=== PATIENT | male | born 1935 | race Caucasian/White ===

== ENCOUNTER 2024-08-08 08:00 | Outpatient (RCR) | payer MEDICARE, MEDICAID, SELFPAY ==
[2024-08-01 08:59] VITALS: BP 185/94; PULSE 80; RESP 18; TEMP 36.6
--- NOTE | 2024-08-01 11:35 | PCM.WC.HP ---
History of Present Illness Date of Service: 08/01/24 Chief Complaint: Full-thickness wound right leg. History of Wound: Full-thickness wound right leg for approximately 1 week Progress of Wound: Patient is a 89-year-old male presenting to wound care center for evaluation of full-thickness wound secondary to venous insufficiency to the right lower extremity. Patient has concern also for proximal dermatitis to the right leg. They have been treating it for approximately 1 week without success. He is here today for further evaluation and treatment. He does have vascular appointment scheduled for this week. They state that the wound to the right lower extremity is improving but still present. Denies trauma. Denies constitutional symptoms. No other pedal complaints at this time. [facility] Medical History Benign prostate hyperplasia Squamous cell carcinoma Sciatica Dysphagia Inguinal hernia Hypertension Type 2 diabetes mellitus Home Medications Medication Instructions Recorded Last Taken Type atenolol 25 mg tablet 25 mg PO DAILY 08/01/24 Unknown History atorvastatin 10 mg tablet 10 mg PO DAILY 08/01/24 Unknown History docusate sodium 100 mg capsule 100 mg PO DAILY 08/01/24 Unknown History doxycycline monohydrate 100 mg 100 mg PO Q12H 08/01/24 Unknown History tablet famotidine 20 mg tablet 20 mg PO DAILY 08/01/24 Unknown History hydrochlorothiazide 25 mg tablet 25 mg PO DAILY 08/01/24 Unknown History metformin 500 mg tablet 500 mg PO BID 08/01/24 Unknown History tamsulosin 0.4 mg capsule 0.8 mg PO DAILY 08/01/24 Unknown History tizanidine 4 mg tablet PO 08/01/24 Unknown History triamcinolone acetonide 0.1 % applic topical 08/01/24 Unknown History topical cream Allergy/AdvReac Type Severity Reaction Status Date / Time No Known Allergies Allergy Verified 08/01/24 09:40 Vital Signs Vital Signs Vital Signs: 08/01/24 08:59 Temperature 97.8 F Temperature Source Temporal Pulse Rate 80 Respiratory Rate 18 Blood Pressure 185/94 H Blood Pressure Mean 124 Blood Pressure Source Monitor Blood Pressure Position Semi-Fowlers Blood Pressure Location Left Arm Oxygen Delivery Method Room Air Physical Exam Narrative Vascular: DP and PT pulses are faintly palpable to right lower extremity. Blanchable erythema appreciated right lower extremity. Skin temperature gradient warm to cool from proximal ankles to distal digit bilateral. Neurological: Light touch intact. Patient response to painful stimuli. Dermatological: Full-thickness wound to the right medial ankle measuring 2.5 x 3.2 x 0.1 cm. Right leg full-thickness ulceration measuring 10.5 x 9.3 x 0.1 cm. Both wounds are granular tissue. Both wounds are caused by venous insufficiency. Mild drainage is appreciated. No malodor or probe to bone. Excisional debridement down to including subcutaneous tissue with a number 7 mm dermal curette to the right medial ankle full-thickness wound done without incident. Predebridement measurement was 2.0 x 3.0 x 0.1 cm. Postdebridement measurements 2.5 x 3.2 x 0.1 cm. Excisional debridement down to including subcutaneous tissue with a number 7 mm dermal curette to the right leg full-thickness wound done without incident.. Right measurement was 10.0 x 9.0 x 0.1 cm. Postdebridement measurement is 10.5 x 9.3 x 0.1 cm. Musculoskeletal: Mild to moderate palpatory tenderness perceived right lower extremity. No pain with calf pressure. Debridement Note Debridement Note Debridement Free Text: Excisional debridement down to including subcutaneous tissue with a number 7 mm dermal curette to the right medial ankle full-thickness wound done without incident. Predebridement measurement was 2.0 x 3.0 x 0.1 cm. Postdebridement measurements 2.5 x 3.2 x 0.1 cm. Excisional debridement down to including subcutaneous tissue with a number 7 mm dermal curette to the right leg full-thickness wound done without incident.. Right measurement was 10.0 x 9.0 x 0.1 cm. Postdebridement measurement is 10.5 x 9.3 x 0.1 cm. Post-Debridement Measurements and Additional Note: Post-Debridement Measurements/Treatment - Nurse 1 - General Ulcer Assessment Start: 08/01/24 08:58 Freq: Status: Active Protocol: GRACE Activity Type Activity Date Activity User E-sign Co-sign Detail Recorded Client Recorded Date Recorded By Document 08/01/24 08:59 NC [id number] 08/01/24 09:24 MT 08/01/24 08:59 - Today's Visit Information Type of service Follow-up Visit (Physician/DICTAPHONE TECHNICIAN ) Arrival Mode Ambulatory Accompanied by wound nurse Patient Identification Verified (Name & Yes ) Safety Precautions Fall Prevention Vital Signs Temperature (97.8 F-99.1 F) 97.8 F Temperature Source Temporal Pulse Rate (60-100) 80 Pulse Location Monitor Respiratory Rate (12-18) 18 Respiratory rate source Monitor Oxygen Delivery Method Room Air Blood Pressure (90/60-120/80) 185/94 H Blood Pressure Mean 124 Source Monitor Position Semi-Fowlers Blood Pressure Location Left Arm History Since Last Visit- (Skip if this is Patient's initial visit) Left Footwear Regular Shoe Right Footwear Regular Shoe Pain Scale: 0-10 Numeric Is Patient Pain Free? Yes WC - Nurse 1 - General Ulcer Measurement Start: 08/01/24 08:58 Freq: Status: Active Protocol: Activity Type Activity Date Activity User E-sign Co-sign Detail Recorded Client Recorded Date Recorded By Document 08/01/24 08:59 NC [id number] 08/01/24 09:24 NC 08/01/24 08:59 Wound Center Nurse 1 #1 Right Superior Roman cluster -Current Size (cm) - Length 6.5 -Current Size (cm) - Width 10 -Current Size (cm) - Depth 0.1 -Total Square Cm 65.0 -Date of Last Picture (Recall this 08/01/24 field) -Photo Taken Yes -Tunneling No -Undermining/Tunneling No -Circular Undermining No -Exudate Amt Medium -Exudate Type Serous -Wound Margin Flat & Intact -Granulation Amt Large (67-100%) -Granulation Quality Pale,[place] -Necrosis Amt Small (1-33%) -Necrotic Tissue Type Adherent Slough -Texture (Maria Elena-wound Skin Appearance) Assessed -Moisture (Maria Elena-wound Skin Appearance) Assessed -Color (Maria Elena-wound Skin Appearance) Assessed -Temperature (Maria Elena-wound Skin No Abnormality Appearance) (Pt Warm) -Tenderness on Palpation (Maria Elena-wound No Skin Appearance) -Ulcer Cleansing Soap and Water -Foul Odor after Cleansing No -Anesthetic Used 5% Lidocaine Gel #3 Right Medial ankle cluster -Current Size (cm) - Length 1.6 -Current Size (cm) - Width 4.5 -Current Size (cm) - Depth 0.1 -Total Square Cm 7.20 -Date of Last Picture (Recall this 08/01/24 field) -Photo Taken Yes -Tunneling No -Undermining/Tunneling No -Circular Undermining No -Exudate Amt Medium -Exudate Type Serous -Wound Margin Flat & Intact -Granulation Amt Large (67-100%) -Granulation Quality Pale,[place] -Necrosis Amt Small (1-33%) -Necrotic Tissue Type Adherent Slough -Texture (Maria Elena-wound Skin Appearance) Assessed -Moisture (Maria Elean-wound Skin Appearance) Assessed -Color (Maria Elena-wound Skin Appearance) Assessed -Temperature (Maria Elena-wound Skin No Abnormality Appearance) (Pt Warm) -Tenderness on Palpation (Maria Elena-wound No Skin Appearance) -Ulcer Cleansing Soap and Water -Anesthetic Used 5% Lidocaine Gel #2 Right roman cluster -Current Size (cm) - Length 3.8 -Current Size (cm) - Width 1.2 -Current Size (cm) - Depth 0.1 -Total Square Cm 4.56 -Date of Last Picture (Recall this 08/01/24 field) -Photo Taken Yes -Tunneling No -Undermining/Tunneling No -Circular Undermining No -Exudate Amt Medium -Exudate Type Serous -Wound Margin Flat & Intact -Granulation Amt Large (67-100%) -Granulation Quality Pale,[place] -Necrosis Amt Small (1-33%) -Necrotic Tissue Type Adherent Slough -Texture (Maria Elena-wound Skin Appearance) Assessed -Moisture (Maria Elena-wound Skin Appearance) Assessed -Color (Maria Elena-wound Skin Appearance) Assessed -Temperature (Maria Elena-wound Skin No Abnormality Appearance) (Pt Warm) -Tenderness on Palpation (Maria Elena-wound No Skin Appearance) -Ulcer Cleansing Soap and Water -Anesthetic Used 5% Lidocaine Gel Right Calf (cm) 34 Right Ankle (cm) 22 WC - Nurse 2 - General Ulcer CM Notes Start: 08/01/24 08:58 Freq: Status: Active Protocol: Activity Type Activity Date Activity User E-sign Co-sign Detail Recorded Client Recorded Date Recorded By Document 08/01/24 09:40 JACY [id number] 08/01/24 09:46 JACY 08/01/24 09:40 Wound Center Nurse 2 #3 Right Medial ankle cluster -Time 09:41 -Correct Patient Yes -Correct Side, Site, Position Yes -Correct Procedure Yes -Procedure Performed Yes -Type of Procedure Debridement -Clinical Debridement Subcutaneous -Tissue Removed Subcutaneous -Post Debridement (cm) - Length 2.5 -Post Debridement (cm) - Width 3.2 -Post Debridement (cm) - Depth 0.1 -Total Square (Post) (cm) 8.00 -Area of Debridement (cm) - Length 2.5 -Area of Debridement (cm) - Width 3.2 -Total Square (Area) (cm) 8.00 -Tunneling No -Undermining/Tunneling No -Circular Undermining No -Wound/Ulcer Outcome Not Healed -Ulcer Cleansing Rinsed/ Irrigated with Saline -Foul Odor after Cleansing No -Bioengineered Tissue No -Bleeding Controlled with Pressure -Treatment Response Procedure Tolerated Well -Offloading No -Debridement - Subq, 1st 20sq cm No #2 Right roman cluster -Time 09:44 -Correct Patient Yes -Correct Side, Site, Position Yes -Correct Procedure Yes -Procedure Performed Yes -Type of Procedure Debridement -Clinical Debridement Subcutaneous -Tissue Removed Subcutaneous -Post Debridement (cm) - Length 10.5 -Post Debridement (cm) - Width 9.3 -Post Debridement (cm) - Depth 0.1 -Total Square (Post) (cm) 97.65 -Area of Debridement (cm) - Length 10.5 -Area of Debridement (cm) - Width 9.3 -Total Square (Area) (cm) 97.65 -Tunneling No -Undermining/Tunneling No -Circular Undermining No -Wound/Ulcer Outcome Not Healed -Ulcer Cleansing Rinsed/ Irrigated with Saline -Foul Odor after Cleansing No -Bioengineered Tissue No -Bleeding Controlled with Pressure -Treatment Response Procedure Tolerated Well -Offloading No -Debridement - Subq, 1st 20sq cm Yes -Debridement, SubQ, ea addt'l 20sq cm 5 or part thereof Pain Scale: 0-10 Numeric Is Patient Pain Free? Yes - Nurse 3 - General Ulcer D/C NN Start: 08/01/24 08:58 Freq: Status: Active Protocol: Activity Type Activity Date Activity User E-sign Co-sign Detail Recorded Client Recorded Date Recorded By Document 08/01/24 09:53 [id number] 08/01/24 09:57 GM 08/01/24 09:53 Wound Care Center Nurse 3 #3 Right Medial ankle cluster -Ulcer Cleansing Not Cleansed -Foul Odor after Cleansing No -Primary Dressing Applied Aquacel AG 4x4 -Primary Dressing Covered/Secured with Dry Gauze,Dry Gauze & Roll Gauze,Secured with Tape -Aquacel AG 4x4 1 #2 Right roman cluster -Ulcer Cleansing Not Cleansed -Foul Odor after Cleansing No -Primary Dressing Covered/Secured with Dry Gauze, Secured with Tape -Wound Comment(s) used remainder of aquacel RLE -Lotion applied to leg before No compression wrap -Tubular Bandage Single Layer -Size of Tubigrip Used Size D -Size D ($) 1 LLE -Lotion applied to leg before No compression wrap -Tubular Bandage Single Layer -Size of Tubigrip Used Size D -Size D ($) 1 Pain Scale: 0-10 Numeric Is Patient Pain Free? Yes WC - Visit Discharge Discharge Condition Stable Ambulatory Status Ambulatory, Walker Transportation Private Auto Assessment/Plan Assessment/Plan (1) Non-pressure chronic ulcer of other part of right lower leg with fat layer exposed: CODE(S): L97.812 - Non-pressure chronic ulcer of other part of right lower leg with fat layer exposed PLAN: Patient was examined and evaluated. All findings were discussed with the patient. All questions were answered to the patient's satisfaction. Excisional debridement down to including subcutaneous tissue with a number 7 mm dermal curette to the right medial ankle full-thickness wound done without incident. Predebridement measurement was 2.0 x 3.0 x 0.1 cm. Postdebridement measurements 2.5 x 3.2 x 0.1 cm. Excisional debridement down to including subcutaneous tissue with a number 7 mm dermal curette to the right leg full-thickness wound done without incident.. Right measurement was 10.0 x 9.0 x 0.1 cm. Postdebridement measurement is 10.5 x 9.3 x 0.1 cm. The right lower extremities are clean and patted dry. Culture was taken. Patient's right lower extremity ulcerations were dressed with Betadine soaked gauze dry sterile dressing ice compression wrap was donned to the right and left lower extremity. Authorization for vascular studies will be sent to the patient's insurance for authorization. Orders for dressing changes were giving to nursing staff at his facility. Will begin authorization of the patient's insurance for skin graft substitute to the right lower extremity. Follow-up at the wound care center with Dr. Brice in 1 week. (2) Non-pressure chronic ulcer of right ankle with fat layer exposed: CODE(S): L97.312 - Non-pressure chronic ulcer of right ankle with fat layer exposed
--- NOTE | 2024-08-02 09:38 | WC ---
PHOTO 08/01/24 RIGHT SUP CASH
--- NOTE | 2024-08-02 09:42 | WC ---
PHOTO 08/01/24 RIGHT INF CASH
--- NOTE | 2024-08-02 10:00 | WC ---
PHOTO 08/01/24 ANKLE CLUSTER
[2024-08-08 08:11] VITALS: BP 128/69; PULSE 55; RESP 15; TEMP 36.4
--- NOTE | 2024-08-08 08:57 | PN.PCM_ITS ---
History of Present Illness Date of Service: 08/08/24 Chief Complaint: Full-thickness wound right leg. History of Wound: Full-thickness wound right leg for approximately 1 week Progress of Wound: Improving full-thickness wound to the right leg Subjective Subjective Patient is 89-year-old male presenting to clinic today follow-up evaluation of full-thickness wound to right leg. They have been doing dressing changes at the [facility]. The wound is improving. He does have an upcoming noninvasive vascular study in the first week of August for baseline studies. He denies any drainage or pain to the right lower extremity. He denies trauma. Denies constitutional symptoms. No other pedal complaints at this time. Objective Data Objective Data Vital Signs: Vital Signs Temp Pulse Resp BP O2 Del Method 97.6 F L 55 L 15 128/69 H Room Air 08/08/24 08:11 08/08/24 08:11 08/08/24 08:11 08/08/24 08:11 08/01/24 08:59 Oxygen Delivery Method Room Air Lab / Micro Data Micro: Microbiology 08/01/24 09:37 Ulcer, Decubitus - Leg, Right Gram Stain - Final 08/01/24 09:37 Ulcer, Decubitus - Leg, Right Wound Culture - Final Klebsiella pneumoniae sp pneum Rothia kristinae Corynebacterium striatum 08/01/24 09:37 Ulcer, Decubitus - Leg, Right Anaerobic Culture - Final No anaerobic bacteria isolated. Physical Exam Narrative Vascular: DP and PT pulses are faintly palpable to right lower extremity. Blanchable erythema appreciated right lower extremity, improved. Skin temperature gradient warm to cool from proximal ankles to distal digit bilateral. Neurological: Light touch intact. Patient response to painful stimuli. Dermatological: Full-thickness wound to the right medial ankle measuring 1.2 x 1.5 x 0.1 cm. Right leg full-thickness ulceration measuring 7.9 x 7.5 x 0.1 cm both wounds are granular tissue. No drainage at this time. No malodor. No probe to bone. Excisional debridement down to including subcutaneous tissue with a number 7 mm dermal curette to the right medial ankle full-thickness wound done without incident. Predebridement measurement was 1.0 x 1.2 x 0.1 cm. Postdebridement measurements 1.2 x 1.5 x 0.1 cm. Excisional debridement down to including subcutaneous tissue with a number 7 mm dermal curette to the right leg full-thickness wound done without incident. Right measurement was 7.7 x 7.4 x 0.1 cm. Postdebridement measurement is 7.9 x 7.5 x 0.1 cm. EpiFix 4.0 x 4.5 cm mesh was applied to the right full-thickness ulceration with 100% use. First application. The graft site was free and clear of any infection. The wound/skin graft substitute was dressed with nonadherent bandage secured in place with Steri-Strips followed by bolster dressing as well as a single layer Tubigrip. Musculoskeletal: Mild to moderate palpatory tenderness perceived right lower extremity. No pain with calf pressure. Debridement Note Debridement Note Debridement Free Text: Excisional debridement down to including subcutaneous tissue with a number 7 mm dermal curette to the right medial ankle full- thickness wound done without incident. Predebridement measurement was 1.0 x 1.2 x 0.1 cm. Postdebridement measurements 1.2 x 1.5 x 0.1 cm. Excisional debridement down to including subcutaneous tissue with a number 7 mm dermal curette to the right leg full-thickness wound done without incident. Right measurement was 7.7 x 7.4 x 0.1 cm. Postdebridement measurement is 7.9 x 7.5 x 0.1 cm. EpiFix 4.0 x 4.5 cm mesh was applied to the right full-thickness ulceration with 100% use. First application. The graft site was free and clear of any infection. The wound/skin graft substitute was dressed with nonadherent bandage secured in place with Steri-Strips followed by bolster dressing as well as a single layer Tubigrip. Post-Debridement Measurements and Additional Note: Post-Debridement Measurements/Treatment - Nurse 1 - General Ulcer Assessment Start: 08/01/24 08:58 Freq: Status: Active Protocol: GRACE Activity Type Activity Date Activity User E-sign Co-sign Detail Recorded Client Recorded Date Recorded By Document 08/01/24 08:59 MT [id number] 08/01/24 09:24 MT Document 08/08/24 08:11 ML [id number] 08/08/24 08:19 ML 08/01/24 08/08/24 08:59 08:11 - Today's Visit Information Type of service Follow-up Visit Follow-up Visit (Physician/CLIENT SERVICES REPRESENTATIVE (Physician/CLIENT SERVICES REPRESENTATIVE ) ) Arrival Mode Ambulatory Ambulatory, Walker Accompanied by wound nurse Patient Identification Verified (Name & Yes Yes ) Patient Requires Transmission-Based No Precautions Safety Precautions Fall Prevention Vital Signs Temperature (97.8 F-99.1 F) 97.8 F 97.6 F L Temperature Source Temporal Temporal Pulse Rate (60-100) 80 55 L Pulse Location Monitor Monitor Respiratory Rate (12-18) 18 15 Respiratory rate source Monitor Observation Oxygen Delivery Method Room Air Blood Pressure (90/60-120/80) 185/94 H 128/69 H Blood Pressure Mean (mm Hg) 124 88 Source Monitor Monitor Position Semi-Fowlers Supine Blood Pressure Location Left Arm Left Arm History Since Last Visit- (Skip if this is Patient's initial visit) Have you changed medications since your No last visit? Any new allergies or adverse reactions No Had a fall/change in ADL's that may No increase risk of falls Signs or symptoms of abuse and/or No neglect since last visit Has dressing in place as prescribed Yes Has compression in place as prescribed Yes Has offloadiing in place as prescribed N/A Experienced any changes in pain level or No management Left Footwear Regular Shoe Right Footwear Regular Shoe Pain Scale: 0-10 Numeric Is Patient Pain Free? Yes Yes - Nurse 1 - General Ulcer Measurement Start: 08/01/24 08:58 Freq: Status: Active Protocol: Activity Type Activity Date Activity User E-sign Co-sign Detail Recorded Client Recorded Date Recorded By Document 08/01/24 08:59 ND [id number] 08/01/24 09:24 ND Document 08/08/24 08:11 ML [id number] 08/08/24 08:19 ML 08/01/24 08/08/24 08:59 08:11 Wound Center Nurse 1 #1 Right Superior Roman cluster -Current Size (cm) - Length 6.5 -Current Size (cm) - Width 10 -Current Size (cm) - Depth 0.1 -Total Square Cm 65.0 -Date of Last Picture (Recall this 08/01/24 field) -Photo Taken Yes -Tunneling No -Undermining/Tunneling No -Circular Undermining No -Exudate Amt Medium -Exudate Type Serous -Wound Margin Flat & Intact -Granulation Amt Large (67-100%) -Granulation Quality Pale,Anita -Necrosis Amt Small (1-33%) -Necrotic Tissue Type Adherent Slough -Texture (Maria Elena-wound Skin Appearance) Assessed -Moisture (Maria Elena-wound Skin Appearance) Assessed -Color (Maria Elena-wound Skin Appearance) Assessed -Temperature (Maria Elena-wound Skin No Abnormality Appearance) (Pt Warm) -Tenderness on Palpation (Maria Elena-wound No Skin Appearance) -Ulcer Cleansing Soap and Water -Foul Odor after Cleansing No -Anesthetic Used 5% Lidocaine Gel #3 Right Medial ankle cluster -Current Size (cm) - Length 1.6 5.5 -Current Size (cm) - Width 4.5 7.2 -Current Size (cm) - Depth 0.1 0.1 -Total Square Cm 7.20 39.60 -Date of Last Picture (Recall this 08/01/24 field) -Photo Taken Yes -Tunneling No -Undermining/Tunneling No -Circular Undermining No -Exudate Amt Medium Medium -Exudate Type Serous Serosanguineous -Wound Margin Flat & Intact -Granulation Amt Large (67-100%) Small (1-33%) -Granulation Quality Pale,Anita -Slough/Fibrin Yes -Necrosis Amt Small (1-33%) Medium (34-66%) -Necrotic Tissue Type Adherent Slough Adherent Slough -Texture (Maria Elena-wound Skin Appearance) Assessed Assessed -Moisture (Maria Elena-wound Skin Appearance) Assessed Assessed -Color (Maria Elena-wound Skin Appearance) Assessed Assessed -Temperature (Maria Elena-wound Skin No Abnormality No Abnormality Appearance) (Pt Warm) (Pt Warm) -Tenderness on Palpation (Maria Elena-wound No No Skin Appearance) -Ulcer Cleansing Soap and Water Soap and Water -Foul Odor after Cleansing No -Anesthetic Used 5% Lidocaine 5% Lidocaine Gel Gel #2 Right roman cluster -Current Size (cm) - Length 3.8 1 -Current Size (cm) - Width 1.2 0.5 -Current Size (cm) - Depth 0.1 0.1 -Total Square Cm 4.56 0.5 -Date of Last Picture (Recall this 08/01/24 field) -Photo Taken Yes -Tunneling No -Undermining/Tunneling No -Circular Undermining No -Exudate Amt Medium Small -Exudate Type Serous Serosanguineous -Wound Margin Flat & Intact -Granulation Amt Large (67-100%) Small (1-33%) -Granulation Quality Pale,Anita -Slough/Fibrin Yes -Necrosis Amt Small (1-33%) Small (1-33%) -Necrotic Tissue Type Adherent Slough Adherent Slough -Texture (Maria Elena-wound Skin Appearance) Assessed Assessed -Moisture (Maria Elena-wound Skin Appearance) Assessed Assessed -Color (Maria Elena-wound Skin Appearance) Assessed Assessed -Temperature (Maria Elena-wound Skin No Abnormality No Abnormality Appearance) (Pt Warm) (Pt Warm) -Tenderness on Palpation (Maria Elena-wound No No Skin Appearance) -Ulcer Cleansing Soap and Water Soap and Water -Foul Odor after Cleansing No -Anesthetic Used 5% Lidocaine 5% Lidocaine Gel Gel Right Calf (cm) 34 Right Ankle (cm) 22 WC - Nurse 2 - General Ulcer CM Notes Start: 08/01/24 08:58 Freq: Status: Active Protocol: Activity Type Activity Date Activity User E-sign Co-sign Detail Recorded Client Recorded Date Recorded By Document 08/01/24 09:40 [id number] 08/01/24 09:46 Document 08/08/24 08:34 DS [id number] 08/08/24 08:37 DS 08/01/24 08/08/24 09:40 08:34 Wound Center Nurse 2 #3 Right Medial ankle cluster -Time 09:41 08:34 -Correct Patient Yes Yes -Correct Side, Site, Position Yes Yes -Correct Procedure Yes Yes -Procedure Performed Yes Yes -Type of Procedure Debridement Debridement -Clinical Debridement Subcutaneous Subcutaneous -Tissue Removed Subcutaneous Subcutaneous -Post Debridement (cm) - Length 2.5 1.2 -Post Debridement (cm) - Width 3.2 1.5 -Post Debridement (cm) - Depth 0.1 0.1 -Total Square (Post) (cm) 8.00 1.80 -Area of Debridement (cm) - Length 2.5 1.2 -Area of Debridement (cm) - Width 3.2 1.5 -Total Square (Area) (cm) 8.00 1.80 -Tunneling No No -Undermining/Tunneling No No -Circular Undermining No No -Wound/Ulcer Outcome Not Healed Not Healed -Ulcer Cleansing Rinsed/ Rinsed/ Irrigated with Irrigated with Saline Saline -Foul Odor after Cleansing No No -Bioengineered Tissue No No -Bleeding Controlled with Pressure Pressure -Treatment Response Procedure Procedure Tolerated Well Tolerated Well -Offloading No -Debridement - Subq, 1st 20sq cm No No #2 Right roman cluster -Time 09:44 08:35 -Correct Patient Yes Yes -Correct Side, Site, Position Yes Yes -Correct Procedure Yes Yes -Procedure Performed Yes Yes -Type of Procedure Debridement Debridement -Clinical Debridement Subcutaneous Subcutaneous -Tissue Removed Subcutaneous Subcutaneous -Post Debridement (cm) - Length 10.5 7.9 -Post Debridement (cm) - Width 9.3 7.5 -Post Debridement (cm) - Depth 0.1 0.1 -Total Square (Post) (cm) 97.65 59.25 -Area of Debridement (cm) - Length 10.5 7.9 -Area of Debridement (cm) - Width 9.3 7.5 -Total Square (Area) (cm) 97.65 59.25 -Tunneling No No -Undermining/Tunneling No No -Circular Undermining No No -Wound/Ulcer Outcome Not Healed Not Healed -Ulcer Cleansing Rinsed/ Rinsed/ Irrigated with Irrigated with Saline Saline -Foul Odor after Cleansing No No -Bioengineered Tissue No -Type of Bioengineered Tissue Epifix Mesh -Expiration Date 12/15/28 -Product Lot Number [id number] -Percent Used 100 -Lot number of Saline Used [id number] -Bleeding Controlled with Pressure Pressure -Treatment Response Procedure Procedure Tolerated Well Tolerated Well -Offloading No -Debridement - Subq, 1st 20sq cm Yes No -Debridement, SubQ, ea addt'l 20sq cm 5 or part thereof -Apply Skin Sub - 1st 25 sq cm - Legs 1 -Apply Skin Sub - each addt'l 25 sq cm 2 - Legs -Epifix Mesh Application 1-4 (per sq 11 cm) Pain Scale: 0-10 Numeric Is Patient Pain Free? Yes Yes - Nurse 3 - General Ulcer D/C NN Start: 08/01/24 08:58 Freq: Status: Active Protocol: Activity Type Activity Date Activity User E-sign Co-sign Detail Recorded Client Recorded Date Recorded By Document 08/01/24 09:53 [id number] 08/01/24 09:57 Document 08/08/24 08:42 [id number] 08/08/24 08:43 08/01/24 08/08/24 09:53 08:42 Wound Care Center Nurse 3 #3 Right Medial ankle cluster -Ulcer Cleansing Not Cleansed Not Cleansed -Foul Odor after Cleansing No No -Primary Dressing Applied Aquacel AG 4x4 -Primary Dressing Covered/Secured with Dry Gauze,Dry Dry Gauze Gauze & Roll Gauze,Secured with Tape -Aquacel AG 4x4 1 #2 Right roman cluster -Ulcer Cleansing Not Cleansed Not Cleansed -Foul Odor after Cleansing No No -Primary Dressing Covered/Secured with Dry Gauze, Dry Gauze,Dry Secured with Gauze & Roll Tape Gauze,Secured with Tape -Wound Comment(s) used remainder of aquacel RLE -Lotion applied to leg before No No compression wrap -Tubular Bandage Single Layer Single Layer -Size of Tubigrip Used Size D Size D -Size D ($) 1 1 LLE -Lotion applied to leg before No No compression wrap -Tubular Bandage Single Layer Single Layer -Size of Tubigrip Used Size D Size D -Size D ($) 1 1 Pain Scale: 0-10 Numeric Is Patient Pain Free? Yes Yes WC - Visit Discharge Discharge Condition Stable Stable Ambulatory Status Ambulatory, Ambulatory, Walker Walker Transportation Private Auto Private Auto Assessment/Plan Assessment/Plan (1) Non-pressure chronic ulcer of other part of right lower leg with fat layer exposed: CODE(S): L97.812 - Non-pressure chronic ulcer of other part of right lower leg with fat layer exposed PLAN: Patient was examined and evaluated. All findings were discussed with the patient. All questions were answered to the patient's satisfaction. Excisional debridement down to including subcutaneous tissue with a number 7 mm dermal curette to the right medial ankle full-thickness wound done without incident. Predebridement measurement was 1.0 x 1.2 x 0.1 cm. Postdebridement measurements 1.2 x 1.5 x 0.1 cm. Excisional debridement down to including subcutaneous tissue with a number 7 mm dermal curette to the right leg full-thickness wound done without incident. Right measurement was 7.7 x 7.4 x 0.1 cm. Postdebridement measurement is 7.9 x 7.5 x 0.1 cm. EpiFix 4.0 x 4.5 cm mesh was applied to the right full-thickness ulceration with 100% use. First application. The graft site was free and clear of any infection. The wound/skin graft substitute was dressed with nonadherent bandage secured in place with Steri-Strips followed by bolster dressing as well as a single layer Tubigrip. Betadine paint was applied to wounds do not covered with amniotic skin graft substitute. Orders for daily dressing changes except the graft were given to residential. Patient will follow-up with noninvasive vascular studies in the next upcoming week. After physical examination there is not really a concern for infection however the patient is growing some bacteria to the medial right leg ulceration. Will be placing the patient on levofloxacin 500 mg daily for 2 weeks Follow-up at the wound care center with Dr. Brice in 1 week. (2) Non-pressure chronic ulcer of right ankle with fat layer exposed: CODE(S): L97.312 - Non-pressure chronic ulcer of right ankle with fat layer exposed
--- NOTE | 2024-08-09 09:47 | WC ---
PHOTO 08/08/24 RIGHT LEG
--- NOTE | 2024-08-09 09:54 | WC ---
PHOTO 08/08/24 RIGHT LEG
== END 2024-08-13 23:59 | disposition home or self-care (01) ==
LOC: WC 08:00
PROVIDERS: PCP Internal Medicine Infectious Disease; Referring Provider Internal Medicine Infectious Disease; Visit Provider Podiatrist Foot & Ankle Surgery
DX: I87.2 Venous insufficiency (chronic) (peripheral) (principal); L97.812 Non-pressure chronic ulcer of other part of right lower leg with fat layer exposed; L97.312 Non-pressure chronic ulcer of right ankle with fat layer exposed; E11.9 Type 2 diabetes mellitus without complications; I10 Essential (primary) hypertension; Z79.84 Long term (current) use of oral hypoglycemic drugs; Z79.899 Other long term (current) drug therapy
CPT/HCPCS: 11042; 11045; 15271; 15272; 87070; 87075; 87077; 87186; 87205; 99214; Q4186; G0463

== ENCOUNTER 2024-08-29 08:15 | Outpatient (RCR) | payer MEDICARE, MEDICAID, SELFPAY ==
--- NOTE | 2024-08-22 07:50 | ART_ITS ---
Reason For Study Reason For Study: RLE Wound Procedure A bilateral lower extremity continuous wave Doppler with analog waveform analysis,segmental pressures,and ankle brachial indexes without exercise. Left Segmental Pressures Left brachial= 164mmHg. Left posterior tibial artery = >254mmHg. Left dorsalis pedis artery = >254mmHg. Left digit = 162 mmHg. The left posterior tibial artery waveforms are biphasic. The left dorsalis pedis waveforms are biphasic. Right Segmental Pressures Right brachial= 155mmHg. Right posterior tibial artery = >254mmHg. Right dorsalis pedis artery = >254mmHg. Right digit = 128 mmHg. The right posterior tibial artery waveforms are biphasic. The right dorsalis pedis waveforms are biphasic. Indices The right ankle brachial index by the posterior tibial artery is N/C. The right ankle brachial index by the dorsalis pedis is N/C. The right digital-brachial index is 0.78. The left ankle brachial index by the posterior tibial artery is N/C. The left ankle brachial index by the dorsalis pedis is N/C. The left digital-brachial index is 0.99. VL/Lower Ext Art Exam w/o Exercis Interpretation Summary Right ERASMO not able to be obtained due to non-compressible vessels. TBI normal. Doppler/PVR waveforms mildly diminished distal SFA/popliteal. Left ERASMO not able to be obtained due to non-compressible vessels. TBI normal. D oppler/PVR waveforms mildly diminished distal SFA/popliteal. Ordering Physician: Nghia Brice Referring Physician: Aristeo Kerr Performed By: Morales Mcpherson RVT
--- NOTE | 2024-08-22 07:50 | VDLE_ITS ---
Reason For Study Reason For Study: RLE Wound RIGHT LEFT CFV is compressible, spontaneous, phasic, competent CFV is compressible, spontaneous, phasic, competent, and demonstrates normal augmentation. and demonstrates normal augmentation. FV is compressible, spontaneous, phasic, competent FV is compressible, spontaneous, phasic, competent and demonstrates normal augmentation. and demonstrates normal augmentation. POP V is compressible, spontaneous, phasic, competent POP V is compressible, spontaneous, phasic, competent and demonstrates normal augmentation. and demonstrates normal augmentation. T/P Trunk is compressible. T/P Trunk is compressible. PTV is compressible. PTV is compressible. RT PerV is compressible. LT PerV is compressible. SFJ is competent and measures 0.49 cm. SFJ is competent and measures 0.58 cm. GSV proximal thigh measures 0.33 x 0.32 cm. GSV proximal thigh measures 0.32 x 0.30 cm. GSV at knee measures 0.33 x 0.35 cm. GSV at knee measures 0.29 x 0.31 cm. GSV above knee is competent. GSV INCOMPETENT throughout for greater than 0.5 GSV below knee is INCOMPETENT for greater than 0.5 seconds. seconds. ASV proximal calf is INCOMPETENT for greater than 0.5 SSV mid calf is competent and measures 0.23 x 0.24 seconds and measures 0.40 x 0.42 cm. cm. Unable to visualize Lt SSV. Procedure Exam performed in department. This is a venous duplex using B-mode, color flow and spectral Doppler. The exam was diagnostic. Patient was scanned in reverse Trendelenburg position during reflux assessment. VL/Venous Duplex US - Toney Extrem Interpretation Summary Deep veins of the bilateral lower extremities are patent and compressible segme ntally. There is no evidence of bilateral lower extremity deep vein thrombosis. The bilateral great saphenous veins appea r patent and compressible segmentally. Positive for reflux in the right great saphenous vein below the knee. Positive for reflux in the left great saphenous julisa throughout, accessory saphe nous vein in the calf. Ordering Physician: Nghia Brice Referring Physician: Aristeo Kerr Performed By: Morales Mcpherson RVT
[2024-08-22 10:57] VITALS: BP 153/72; PULSE 83; RESP 16; TEMP 36.8
--- NOTE | 2024-08-22 13:08 | PCM.WC.HP ---
History of Present Illness Date of Service: 08/22/24 Chief Complaint: Full-thickness wound right leg. History of Wound: Full-thickness wound right leg for approximately 1 week. This was a courtesy visit for Dr. Brice patient was receiving epi #2 epi fix to the right leg cluster. Upon exam and and debridement I debrided the right medial ankle scabs came off easily with new skin underneath. [facility] Medical History Benign prostate hyperplasia Squamous cell carcinoma Sciatica Dysphagia Inguinal hernia Hypertension Type 2 diabetes mellitus Home Medications ?Medication ?Instructions ?Recorded ?Last Taken ?Type atenolol 25 mg tablet 25 mg PO DAILY 08/01/24 Unknown History atorvastatin 10 mg tablet 10 mg PO DAILY 08/01/24 Unknown History docusate sodium 100 mg capsule 100 mg PO DAILY 08/01/24 Unknown History doxycycline monohydrate 100 mg 100 mg PO Q12H 08/01/24 Unknown History tablet famotidine 20 mg tablet 20 mg PO DAILY 08/01/24 Unknown History hydrochlorothiazide 25 mg tablet 25 mg PO DAILY 08/01/24 Unknown History metformin 500 mg tablet 500 mg PO BID 08/01/24 Unknown History tamsulosin 0.4 mg capsule 0.8 mg PO DAILY 08/01/24 Unknown History tizanidine 4 mg tablet PO 08/01/24 Unknown History triamcinolone acetonide 0.1 % applic topical 08/01/24 Unknown History topical cream Allergy/AdvReac Type Severity Reaction Status Date / Time No Known Allergies Allergy Verified 08/01/24 09:40 ROS Constitutional Constitutional: Reports systems reviewed and no addt'l complaints, except as documented Eyes Eyes: Reports systems reviewed and no addt'l complaints, except as documented ENT HEENT: Reports systems reviewed and no addt'l complaints, except as documented Cardiovascular Cardiovascular: Reports systems reviewed and no addt'l complaints, except as documented Respiratory/Chest Respiratory/Chest: Reports systems reviewed and no addt'l complaints, except as documented Gastrointestinal Gastrointestinal: Reports systems reviewed and no addt'l complaints, except as documented Genitourinary Genitourinary: Reports systems reviewed and no addt'l complaints, except as documented Musculoskeletal Musculoskeletal: Reports systems reviewed and no addt'l complaints, except as documented Integumentary Integumentary: Reports systems reviewed and no addt'l complaints, except as documented Neurologic Neurologic: Reports systems reviewed and no addt'l complaints, except as documented Psychiatric Psychiatric: Reports systems reviewed and no addt'l complaints, except as documented Endocrine Endocrinology: Reports systems reviewed and no addt'l complaints, except as documented Hematologic/Lymphatic Hematologic/Lymphatic: Reports systems reviewed and no addt'l complaints, except as documented Allergic/Immunologic Allergic/Immunologic: Reports systems reviewed and no addt'l complaints, except as documented Vital Signs Vital Signs Vital Signs: 08/22/24 10:57 Temperature 98.2 F Temperature Source Temporal Pulse Rate 83 Respiratory Rate 16 Blood Pressure 153/72 H Blood Pressure Mean 99 Blood Pressure Source Monitor Blood Pressure Position Sitting Blood Pressure Location Right Arm Oxygen Delivery Method Room Air Physical Exam Narrative Vascular: DP and PT pulses are faintly palpable to right lower extremity. Blanchable erythema appreciated right lower extremity. Skin temperature gradient warm to cool from proximal ankles to distal digit bilateral. Neurological: Light touch intact. Patient response to painful stimuli. Dermatological: Full-thickness wound to the right medial ankle measuring 2.5 x 3.2 x 0.1 cm. Right leg full-thickness ulceration measuring 10.5 x 9.3 x 0.1 cm. Both wounds are granular tissue. Both wounds are caused by venous insufficiency. Mild drainage is appreciated. No malodor or probe to bone. Excisional debridement down to including subcutaneous tissue with a number 7 mm dermal curette to the right medial ankle full-thickness wound done without incident. Predebridement measurement was 2.0 x 3.0 x 0.1 cm. Postdebridement measurements 2.5 x 3.2 x 0.1 cm. Excisional debridement down to including subcutaneous tissue with a number 7 mm dermal curette to the right leg full-thickness wound done without incident.. Right measurement was 10.0 x 9.0 x 0.1 cm. Postdebridement measurement is 10.5 x 9.3 x 0.1 cm. Musculoskeletal: Mild to moderate palpatory tenderness perceived right lower extremity. No pain with calf pressure. Debridement Note Debridement Note Wound debrided: Right leg cluster Type of Debridement: Excisional debridement Anesthesia Used: 5% Lidocaine Gel Depth: Down to and including healthy tissue and in the subcutaneous layer Percentage of wound debrided: 100 Instrument Used: 5mm curette Tissue Removed: Devitalized tissue and fibrin Severity: Limited To Skin Breakdown Amount of bleeding with debridement: Mild Bleeding Controlled with: Compression and gauze Patient tolerated procedure: Patient tolerated procedure well Post-Debridement Measurements and Additional Note: Post-Debridement Measurements/Treatment - Nurse 1 - General Ulcer Assessment Start: 08/22/24 10:57 Freq: Status: Active Protocol: GRACE Activity Type Activity Date Activity User E-sign Co-sign Detail Recorded Client Recorded Date Recorded By Document 08/22/24 10:57 [id number] 08/22/24 11:00 08/22/24 10:57 - Today's Visit Information Type of service Follow-up Visit (Physician/[employer] ) Arrival Mode Ambulatory, Walker Transfer Assistance None Patient Identification Verified (Name & Yes ) Patient Requires Transmission-Based No Precautions Vital Signs Temperature (97.8 F-99.1 F) 98.2 F Temperature Source Temporal Pulse Rate (60-100) 83 Pulse Location Monitor Respiratory Rate (12-18) 16 Respiratory rate source Observation Oxygen Delivery Method Room Air Blood Pressure (90/60-120/80) 153/72 H Blood Pressure Mean 99 Source Monitor Position Sitting Blood Pressure Location Right Arm History Since Last Visit- (Skip if this is Patient's initial visit) Have you changed medications since your No last visit? Any new allergies or adverse reactions No Had a fall/change in ADL's that may No increase risk of falls Signs or symptoms of abuse and/or No neglect since last visit Have you been in the hospital since your No last visit? Has dressing in place as prescribed Yes Has compression in place as prescribed Yes Has offloadiing in place as prescribed N/A Experienced any changes in pain level or Yes management Left Footwear Regular Shoe Right Footwear Regular Shoe Pain Scale: 0-10 Numeric Is Patient Pain Free? Yes [facility] Nurse 1 - General Ulcer Measurement Start: 08/22/24 10:57 Freq: Status: Active Protocol: Activity Type Activity Date Activity User E-sign Co-sign Detail Recorded Client Recorded Date Recorded By Document 08/22/24 10:57 [id number] 08/22/24 11:00 08/22/24 10:57 Wound Center Nurse 1 #3 Right Medial ankle cluster -Combined with other wound No -Current Size (cm) - Length 0.8 -Current Size (cm) - Width 2.0 -Current Size (cm) - Depth 0.1 -Total Square Cm 1.60 -Photo Taken No -Epithelialization None Present -Tunneling No -Undermining/Tunneling No -Circular Undermining No -Exudate Type Serosanguineous -Wound Margin Distinct, Outline Attached -Granulation Amt None Present (0 %) -Slough/Fibrin Yes -Necrosis Amt Small (1-33%) -Texture (Maria Elena-wound Skin Appearance) Assessed -Moisture (Maria Elena-wound Skin Appearance) Assessed -Color (Maria Elena-wound Skin Appearance) Assessed -Temperature (Maria Elena-wound Skin No Abnormality Appearance) (Pt Warm) -Tenderness on Palpation (Maria Elena-wound No Skin Appearance) -Ulcer Cleansing Soap and Water -Foul Odor after Cleansing No -Anesthetic Used 5% Lidocaine Gel #2 Right roman cluster -Current Size (cm) - Length 10.6 -Current Size (cm) - Width 8.0 -Current Size (cm) - Depth 0.1 -Total Square Cm 84.80 -Photo Taken No -Epithelialization None Present -Tunneling No -Undermining/Tunneling No -Circular Undermining No -Exudate Amt Small -Exudate Type Yellow/Green -Wound Margin Distinct, Outline Attached -Granulation Amt Medium (34-66%) -Granulation Quality [place] -Slough/Fibrin No -Necrosis Amt None Present (0 %) -Texture (Maria Elena-wound Skin Appearance) Assessed -Moisture (Maria Elena-wound Skin Appearance) Assessed -Color (Maria Elena-wound Skin Appearance) Assessed -Temperature (Maria Elena-wound Skin No Abnormality Appearance) (Pt Warm) -Tenderness on Palpation (Maria Elena-wound No Skin Appearance) -Ulcer Cleansing Soap and Water -Foul Odor after Cleansing No -Anesthetic Used 5% Lidocaine Gel Lower Limb Edema Present No Right Calf (cm) 34.2 Right Ankle (cm) 20.0 WC - Nurse 2 - General Ulcer CM Notes Start: 08/22/24 10:57 Freq: Status: Active Protocol: Activity Type Activity Date Activity User E-sign Co-sign Detail Recorded Client Recorded Date Recorded By Document 08/22/24 11:09 [facility] [id number] 08/22/24 11:22 [facility] 08/22/24 11:09 Wound Center Nurse 2 #3 Right Medial ankle cluster -Time 11:11 -Procedure Performed No -Post Debridement (cm) - Length 0 -Post Debridement (cm) - Width 0 -Post Debridement (cm) - Depth 0 -Total Square (Post) (cm) 0 -Area of Debridement (cm) - Length 0 -Area of Debridement (cm) - Width 0 -Total Square (Area) (cm) 0 -Tunneling No -Undermining/Tunneling No -Circular Undermining No -Wound/Ulcer Outcome Healed- Epithelialized -Ulcer Cleansing Rinsed/ Irrigated with Saline -Foul Odor after Cleansing No -Bioengineered Tissue No -Bleeding Controlled with NA #2 Right roman cluster -Time 11:10 -Correct Patient Yes -Correct Side, Site, Position Yes -Correct Procedure Yes -Procedure Performed Yes -Type of Procedure Debridement -Clinical Debridement Subcutaneous -Tissue Removed Subcutaneous -Post Debridement (cm) - Length 3 -Post Debridement (cm) - Width 5.5 -Post Debridement (cm) - Depth 0.1 -Total Square (Post) (cm) 16.5 -Area of Debridement (cm) - Length 3 -Area of Debridement (cm) - Width 5.5 -Total Square (Area) (cm) 16.5 -Tunneling No -Undermining/Tunneling No -Circular Undermining No -Wound/Ulcer Outcome Not Healed -Ulcer Cleansing Rinsed/ Irrigated with Saline -Foul Odor after Cleansing No -Bioengineered Tissue Yes -Type of Bioengineered Tissue Epifix Mesh -Expiration Date 02/14/29 -Product Lot Number [id number] -Percent Used 100 -Lot number of Saline Used [id number] -Bleeding Controlled with Pressure -Treatment Response Procedure Tolerated Well -Debridement - Subq, 1st 20sq cm No -Apply Skin Sub - 1st 25 sq cm - Legs 1 -Epifix Mesh Application 1-4 (per sq 11 cm) Pain Scale: 0-10 Numeric Is Patient Pain Free? Yes Additional Wound Wound debrided: Right medial ankle Type of Debridement: Excisional debridement Anesthesia Used: 5% Lidocaine Gel Depth: Down to and including healthy tissue and in the subcutaneous layer Percentage of wound debrided: 100 Instrument Used: 5mm curette Tissue Removed: Devitalized tissue Severity: Limited To Skin Breakdown Amount of bleeding with debridement: None Bleeding Controlled with: Compression and gauze Patient tolerated procedure: Patient tolerated procedure well Imaging Radiology Impression Extremity Arterial Study 08/22/24 07:50 Interpretation Summary Right ERASMO not able to be obtained due to non-compressible vessels. TBI normal. Doppler/PVR waveforms mildly diminished distal SFA/popliteal. Left ERASMO not able to be obtained due to non-compressible vessels. TBI normal. Doppler/PVR waveforms mildly diminished distal SFA/popliteal. Ordering Physician: Nghia Brice Referring Physician: Aristeo Kerr Performed By: Morales Mcpherson RVT Venous Doppler Study 08/22/24 07:50 Interpretation Summary Deep veins of the bilateral lower extremities are patent and compressible segmentally. There is no evidence of bilateral lower extremity deep vein thrombosis. The bilateral great saphenous veins appear patent and compressible segmentally. Positive for reflux in the right great saphenous vein below the knee. Positive for reflux in the left great saphenous julisa throughout, accessory saphenous vein in the calf. Ordering Physician: Nghia Brice Referring Physician: Aristeo Kerr Performed By: Morales Mcpherson, KIRTSIN Assessment/Plan Assessment/Plan (1) Non-pressure chronic ulcer of other part of right lower leg with fat layer exposed: CODE(S): L97.812 - Non-pressure chronic ulcer of other part of right lower leg with fat layer exposed PLAN: Courtesy visit [place] mesh #2 applied to the right leg cluster covered with wound veil Steri-Strips hydrogel patient was informed not to touch outside dressings only and return in 1 week (2) Non-pressure chronic ulcer of right ankle with fat layer exposed: CODE(S): L97.312 - Non-pressure chronic ulcer of right ankle with fat layer exposed PLAN: Debrided the old scabs off and now resolved with new skin
[2024-08-29 08:17] VITALS: BP 140/51; PULSE 59; RESP 18; TEMP 36.2
--- NOTE | 2024-08-29 08:38 | PCM.WC.PN ---
History of Present Illness Date of Service: 08/29/24 Chief Complaint: Full-thickness wound right leg. History of Wound: Full-thickness wound right leg for approximately 1 week. This was a courtesy visit for Dr. Brice patient was receiving epi #2 epi fix to the right leg cluster. Upon exam and and debridement I debrided the right medial ankle scabs came off easily with new skin underneath. Progress of Wound: Healed full-thickness wound to the right lower extremity. Subjective Subjective Patient is 89-year-old male presenting to clinic today for follow-up evaluation of full-thickness wound to the right lower extremity with application of amniotic skin graft substitute. Patient was seen by an outside provider at a courtesy last week. It looks like the patient's wounds are now healed today. He is elevating and compressing as discussed. He does have a recliner now in his nursing facility for extra elevation. He is ambulating with a rollator. He denies any open lesions or abrasions. Denies trauma. Denies constitutional symptoms. No other pedal complaints at this time. Objective Data Objective Data Vital Signs: Vital Signs Temp Pulse Resp BP O2 Del Method 97.2 F L 59 L 18 140/51 H Room Air 08/29/24 08:17 08/29/24 08:17 08/29/24 08:17 08/29/24 08:17 08/29/24 08:17 Oxygen Delivery Method Room Air Lab / Micro Data Micro: Microbiology 08/01/24 09:37 Ulcer, Decubitus - Leg, Right Gram Stain - Final 08/01/24 09:37 Ulcer, Decubitus - Leg, Right Wound Culture - Final Klebsiella pneumoniae sp pneum Rothia kristinae Corynebacterium striatum 08/01/24 09:37 Ulcer, Decubitus - Leg, Right Anaerobic Culture - Final No anaerobic bacteria isolated. Physical Exam Narrative Vascular: DP and PT pulses are faintly palpable to right lower extremity. No erythema. Skin temperature great is warm to warm from proximal ankle to distal digits to the right lower extremity. Neurological: Light touch intact. Patient response to painful stimuli. Dermatological: Full-thickness wound to the right lower extremity is healed. No breakdown of skin or sign of infection. Musculoskeletal: No pain on palpation to the right lower extremity healed full-thickness wound. No pain with calf pressure. Debridement Note Debridement Note Post-Debridement Measurements and Additional Note: Post-Debridement Measurements/Treatment - Nurse 1 - General Ulcer Assessment Start: 08/22/24 10:57 Freq: Status: Active Protocol: GRACE Activity Type Activity Date Activity User E-sign Co-sign Detail Recorded Client Recorded Date Recorded By Document 08/22/24 10:57 [id number] 08/22/24 11:00 Document 08/29/24 08:17 DS [id number] 08/29/24 08:18 DS 08/22/24 08/29/24 10:57 08:17 - Today's Visit Information Type of service Follow-up Visit Follow-up Visit (Physician/INDIGO MIXER (Physician/INDIGO MIXER ) ) Arrival Mode Ambulatory, Ambulatory, Walker Walker Transfer Assistance None Patient Identification Verified (Name & Yes Yes ) Patient Requires Transmission-Based No No Precautions Safety Precautions Fall Prevention Vital Signs Temperature (97.8 F-99.1 F) 98.2 F 97.2 F L Temperature Source Temporal Temporal Pulse Rate (60-100) 83 59 L Pulse Location Monitor Monitor Respiratory Rate (12-18) 16 18 Respiratory rate source Observation Observation Oxygen Delivery Method Room Air Room Air Blood Pressure (90/60-120/80) 153/72 H 140/51 H Blood Pressure Mean (mm Hg) 99 80 Source Monitor Monitor Position Sitting Sitting Blood Pressure Location Right Arm Left Arm History Since Last Visit- (Skip if this is Patient's initial visit) Have you changed medications since your No No last visit? Any new allergies or adverse reactions No No Had a fall/change in ADL's that may No No increase risk of falls Signs or symptoms of abuse and/or No No neglect since last visit Have you been in the hospital since your No No last visit? Has dressing in place as prescribed Yes Yes Has compression in place as prescribed Yes Yes Has offloadiing in place as prescribed N/A N/A Experienced any changes in pain level or Yes No management Left Footwear Regular Shoe Regular Shoe Right Footwear Regular Shoe Regular Shoe Pain Scale: 0-10 Numeric Is Patient Pain Free? Yes Yes - Nurse 1 - General Ulcer Measurement Start: 08/22/24 10:57 Freq: Status: Active Protocol: Activity Type Activity Date Activity User E-sign Co-sign Detail Recorded Client Recorded Date Recorded By Document 08/22/24 10:57 [id number] 08/22/24 11:00 GM Document 08/29/24 08:18 DS [id number] 08/29/24 08:22 DS 08/22/24 08/29/24 10:57 08:18 Wound Center Nurse 1 #3 Right Medial ankle cluster -Combined with other wound No -Current Size (cm) - Length 0.8 -Current Size (cm) - Width 2.0 -Current Size (cm) - Depth 0.1 -Total Square Cm 1.60 -Photo Taken No -Epithelialization None Present -Tunneling No -Undermining/Tunneling No -Circular Undermining No -Exudate Type Serosanguineous -Wound Margin Distinct, Outline Attached -Granulation Amt None Present (0 %) -Slough/Fibrin Yes -Necrosis Amt Small (1-33%) -Texture (Maria Elena-wound Skin Appearance) Assessed -Moisture (Maria Elena-wound Skin Appearance) Assessed -Color (Maria Elena-wound Skin Appearance) Assessed -Temperature (Maria Elena-wound Skin No Abnormality Appearance) (Pt Warm) -Tenderness on Palpation (Maria Elena-wound No Skin Appearance) -Ulcer Cleansing Soap and Water -Foul Odor after Cleansing No -Anesthetic Used 5% Lidocaine Gel #2 Right roman cluster -Current Size (cm) - Length 10.6 0.1 -Current Size (cm) - Width 8.0 0.1 -Current Size (cm) - Depth 0.1 0.1 -Total Square Cm 84.80 0.01 -Date of Last Picture (Recall this 08/29/24 field) -Photo Taken No Yes -Epithelialization None Present -Tunneling No No -Undermining/Tunneling No No -Circular Undermining No No -Exudate Amt Small None Present -Exudate Type Yellow/Green -Wound Margin Distinct, Distinct, Outline Outline Attached Attached -Granulation Amt Medium (34-66%) -Granulation Quality [place] -Slough/Fibrin No -Necrosis Amt None Present (0 %) -Texture (Maria Elena-wound Skin Appearance) Assessed Assessed -Moisture (Maria Elena-wound Skin Appearance) Assessed Assessed -Color (Maria Elena-wound Skin Appearance) Assessed Assessed -Temperature (Maria Elena-wound Skin No Abnormality No Abnormality Appearance) (Pt Warm) (Pt Warm) -Tenderness on Palpation (Maria Elena-wound No No Skin Appearance) -Ulcer Cleansing Soap and Water Soap and Water -Foul Odor after Cleansing No No -Anesthetic Used 5% Lidocaine Gel Lower Limb Edema Present No Right Calf (cm) 34.2 30.8 Right Ankle (cm) 20.0 19.5 Left Calf (cm) 28.7 Left Ankle (cm) 21.0 - Nurse 2 - General Ulcer CM Notes Start: 08/22/24 10:57 Freq: Status: Active Protocol: Activity Type Activity Date Activity User E-sign Co-sign Detail Recorded Client Recorded Date Recorded By Document 08/22/24 11:09 [facility] [id number] 08/22/24 11:22 [facility] Document 08/29/24 08:30 [id number] 08/29/24 08:31 08/22/24 08/29/24 11:09 08:30 Wound Center Nurse 2 #3 Right Medial ankle cluster -Time 11:11 -Procedure Performed No -Post Debridement (cm) - Length 0 -Post Debridement (cm) - Width 0 -Post Debridement (cm) - Depth 0 -Total Square (Post) (cm) 0 -Area of Debridement (cm) - Length 0 -Area of Debridement (cm) - Width 0 -Total Square (Area) (cm) 0 -Tunneling No -Undermining/Tunneling No -Circular Undermining No -Wound/Ulcer Outcome Healed- Epithelialized -Ulcer Cleansing Rinsed/ Irrigated with Saline -Foul Odor after Cleansing No -Bioengineered Tissue No -Bleeding Controlled with NA #2 Right roman cluster -Time 11:10 -Correct Patient Yes Yes -Correct Side, Site, Position Yes No -Correct Procedure Yes No -Procedure Performed Yes No -Type of Procedure Debridement -Clinical Debridement Subcutaneous -Tissue Removed Subcutaneous -Post Debridement (cm) - Length 3 0 -Post Debridement (cm) - Width 5.5 0 -Post Debridement (cm) - Depth 0.1 0 -Total Square (Post) (cm) 16.5 0 -Area of Debridement (cm) - Length 3 0 -Area of Debridement (cm) - Width 5.5 0 -Total Square (Area) (cm) 16.5 0 -Tunneling No -Undermining/Tunneling No -Circular Undermining No -Wound/Ulcer Outcome Not Healed Healed- Epithelialized -Ulcer Cleansing Rinsed/ Irrigated with Saline -Foul Odor after Cleansing No -Bioengineered Tissue Yes -Type of Bioengineered Tissue Epifix Mesh -Expiration Date 02/14/29 -Product Lot Number [id number] -Percent Used 100 -Lot number of Saline Used [id number] -Bleeding Controlled with Pressure -Treatment Response Procedure Tolerated Well -Debridement - Subq, 1st 20sq cm No -Apply Skin Sub - 1st 25 sq cm - Legs 1 -Epifix Mesh Application 1-4 (per sq 11 cm) Pain Scale: 0-10 Numeric Is Patient Pain Free? Yes Yes - Nurse 3 - General Ulcer D/C NN Start: 08/22/24 10:57 Freq: Status: Active Protocol: Activity Type Activity Date Activity User E-sign Co-sign Detail Recorded Client Recorded Date Recorded By Document 08/22/24 13:39 KW [id number] 08/22/24 13:40 KW Document 08/29/24 08:32 JF [id number] 08/29/24 08:33 JF 08/22/24 08/29/24 13:39 08:32 Wound Care Center Nurse 3 #2 Right roman cluster -Primary Dressing Covered/Secured with Dry Gauze & Roll Gauze, Secured with Tape LLE -Tubular Bandage Single Layer -Size of Tubigrip Used Size D -Size D ($) 1 RLE -Tubular Bandage Single Layer Single Layer -Size of Tubigrip Used Size D Size D -Size D ($) 1 1 Pain Scale: 0-10 Numeric Is Patient Pain Free? Yes Yes - Visit Discharge Discharge Condition Stable Stable Ambulatory Status Ambulatory Transportation Private Auto Private Auto Medication Reconcilliation completed & No No provided to patient/care provider Clinical Summary of Care Provided Yes No Assessment/Plan Assessment/Plan (1) Non-pressure chronic ulcer of other part of right lower leg with fat layer exposed: CODE(S): L97.812 - Non-pressure chronic ulcer of other part of right lower leg with fat layer exposed PLAN: Patient was examined and evaluated. All findings were discussed with the patient. All questions were answered to the patient's satisfaction. After physical examination the patient's full-thickness wound to right lower extremity are now healed. At this time the patient will be discharged from the wound care center. Educated the patient and nursing staff to continue compression and lotion daily. He is to elevate whenever he is at rest. Patient is to ambulate regularly with rollator as needed. If he has any new breakdown of skin or issues he is to return to the wound care center for further treatment and evaluation. They have the office pleased with the visit.
--- NOTE | 2024-08-29 14:18 | WC ---
PHOTO 08/29/24 RIGHT CASH
== END 2024-09-13 14:56 | disposition home or self-care (01) ==
LOC: WC 08:15
PROVIDERS: PCP Internal Medicine Infectious Disease; Referring Provider Internal Medicine Infectious Disease; Visit Provider Podiatrist Foot & Ankle Surgery
DX: I87.2 Venous insufficiency (chronic) (peripheral) (principal); L97.811 Non-pressure chronic ulcer of other part of right lower leg limited to breakdown of skin; L97.311 Non-pressure chronic ulcer of right ankle limited to breakdown of skin; E11.9 Type 2 diabetes mellitus without complications; I10 Essential (primary) hypertension; Z79.84 Long term (current) use of oral hypoglycemic drugs; Z79.899 Other long term (current) drug therapy
CPT/HCPCS: 15271; 93923; 93970; 99213; Q4186; G0463